=== PATIENT | female | born 1975 | race Hispanic/Latino ===

== ENCOUNTER 2018-05-29 08:17 | Inpatient (IN) | payer OTHER ==
[~2018-05-29] VITALS: Ht 177.8 cm; Wt 155.1 kg
[2018-05-29 12:03] VITALS: BP 134/76
--- NOTE | 2018-05-29 12:03 | History & Physical Pre-Op ---
General Information and [facility] MD Statement: I have seen and personally examined TONAI MERIDA and documented this H&P. The patient is a 42 year old F who presented with a patient stated chief complaint of right flank pain suprapubic pain nausea vomiting. []. History of Present Illness: 3 para 2001 at 27 and 2 with a history of insulin-dependent diabetes a previous urinary tract infection who presents with abdominal pain flank tenderness a questionable UA with bacteria for admission for pyelonephritis Allergies/Medications Allergies: Coded Allergies: Penicillins (Severe, ANAPHYLAXIS 05/29/18) acetaminophen (From LORTAB) (UNKNOWN 05/29/18) hydrocodone (From LORTAB) (UNKNOWN 05/29/18) Past History Surgical History Pertinent Surgical History: none Review of Systems Review of Systems: as stated in the HPI Exam & Diagnostic Data Physical Exam: Obese female writhing in bed HEENT anicteric pale Right CVA tenderness mild Abdomen gravid obese nontender right upper quadrant suprapubic pain noted Pelvic vulva clean cervix 1 cm long Extremities negative edema negative Homans Assessment/Plan Assessment/Plan: Assessment is IUP at 23 weeks pyelonephritis history of insulin-dependent diabetes plan is for clindamycin to Dilaudid IV fluids endocrine consult As Ranked By This Provider Problem List: 1. Pyelitis or pyelonephritis in diseases classified elsewhere 2.
[2018-05-29] MEDS ORDERED: PRENATABS RX T1 EACH PO (12:32)
[2018-05-29] MEDS ORDERED: LEXAPRO20 M1 PO (12:33)
[2018-05-29] MEDS ORDERED: NOVOLIN R100 UNIT/1 SC (12:33)
[2018-05-29 12:38] LABS: ABSOLUTE BASOPHIL COUNT 0 /CUMM (0.0-0.2); ABSOLUTE EOSINOPHIL COUNT 0.1 /CUMM (0.0-0.7); ABSOLUTE GRANULOCYTE CT 7.6 /CUMM (1.4-6.5); ABSOLUTE LYMPH COUNT 1.5 /CUMM (1.2-3.4); ABSOLUTE MONOCYTE COUNT 0.6 /CUMM (0.10-0.60); BASOPHIL % 0.3 % (0.0-2.0); EOSINOPHIL % 0.6 % (0-5); GRANULOCYTE % 78.1 % (42.2-75.2); HEMATOCRIT 26.4 % (37-47); MEAN CORPUSCULAR HGB 20.3 PG (27.0-31.0); MEAN CORPUSCULAR HGB CONC 31.4 G/DL (33.0-37.0); MEAN PLATELET VOLUME 8.1 FL (7.4-10.4); PLATELET COUNT 268 /CUMM (130-400); RBC DISTRIBUTION WIDTH 19.1 % (11.5-14.5); RED BLOOD CELL CT 4.08 /CUMM (4.20-5.40); WHITE BLOOD CELL COUNT 9.7 /CUMM (4.8-10.8)
[2018-05-29 12:55] LABS: MEAN CORPUSCULAR VOLUME 64.6 FL (81.0-99.0)
--- NOTE | 2018-05-29 16:11 | Cons- Endocrinology ---
General Information and HPI Consulting Request Date of Consult: 05/29/18 Requested By: Dr. 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 Currently she is 23 weeks . On 05/20/2018, she was put on NPH at bedtime and she was recommended to control her diet. Her glucose levels were better controlled. Repeat HbA1c on 05/29 was 5.9%. Patient was admitted for UTI and ? left pyonephrolitis. In hospital, her random glucose level was 83. Allergies/Medications Allergies: Coded Allergies: Penicillins (Severe, ANAPHYLAXIS 05/29/18) acetaminophen (From LORTAB) (UNKNOWN 05/29/18) hydrocodone (From LORTAB) (UNKNOWN 05/29/18) Home Med List: Escitalopram Oxalate (Lexapro) 20 MG TABLET 1 TAB PO DAILY DEPRESSION ( Reported) Insulin Regular (Novolin R Inj) 1,000 UNITS/10 ML LIBAN 20 UNITS SC SEE ADMIN CRITERIA DIABETES (Reported) Vit #76/Iron,Carb/FA (Prenatabs Rx Tablet) 29 MG IRON-1 MG TABLET 1 TAB PO DAILY (Reported) Review of Systems Review of Systems Constitutional: Reports: see HPI. Denies: fever. Cardiovascular: Denies: chest pain. Respiratory: Denies: short of breath. GI: Denies: abdominal pain. Genitourinary: Reports: dysuria, pain (left flank pain). Skin: Reports: no symptoms. Hematologic/Endocrine: Denies: polyuria, polydipsia. Past History Medical History Blood Disorders: iron deficiency anemia Surgical History Surgical History: 1 Psychosocial History Smoking Status: Former Smoker Exam & Diagnostic Data Last 24 Hrs of Vital Signs/I&O Vital Signs Date Time Temp Pulse Resp B/P B/P Pulse O2 O2 Flow FiO2 Mean Ox Delivery Rate 05/29 1203 134/76 Intake & Output 05/29 1600 05/29 0800 05/29 0000 Intake Total Output Total Balance Patient 342 lb Weight Physical Exam General Appearance: mild distress Neck: thyromegaly (mild) Respiratory: lungs clear Cardiovascular: regular rate/rhythm Gastrointestinal: soft, non-tender Extremities: no edema Labs/[place]isco Results: Laboratory Tests 05/29 05/29 1211 0830 Chemistry Sodium (137 - 145 mmol/L) 139 Potassium (3.5 - 5.1 mmol/L) 4.1 BUN (7 - 17 mg/dL) 5 L Creatinine (0.5 - 1.0 mg/dL) 0.5 Estimated GFR (>60 ml/min) > 60 BUN/Creatinine Ratio (7 - 25 %) 10.0 Glucose (65 - 99 mg/dL) 89 Hemoglobin A1c (4.2 - 5.8 %) 5.9 H Hematology CBC w Diff NO MAN DIFF REQ WBC (4.8 - 10.8 /CUMM) 9.7 RBC (4.20 - 5.40 /CUMM) 4.08 L Hgb (12.0 - 16.0 G/DL) 8.3 L Hct (37 - 47 %) 26.4 L MCV (81.0 - 99.0 FL) 64.6 L MCH (27.0 - 31.0 PG) 20.3 L MCHC (33.0 - 37.0 G/DL) 31.4 L RDW (11.5 - 14.5 %) 19.1 H Plt Count (130 - 400 /CUMM) 268 MPV (7.4 - 10.4 FL) 8.1 Gran % (42.2 - 75.2 %) 78.1 H Lymphocytes % (20.5 - 51.1 %) 15.1 L Monocytes % (1.7 - 9.3 %) 5.9 Eosinophils % (0 - 5 %) 0.6 Basophils % (0.0 - 2.0 %) 0.3 Absolute Granulocytes (1.4 - 6.5 /CUMM) 7.6 H Absolute Lymphocytes (1.2 - 3.4 /CUMM) 1.5 Absolute Monocytes (0.10 - 0.60 /CUMM) 0.6 Absolute Eosinophils (0.0 - 0.7 /CUMM) 0.1 Absolute Basophils (0.0 - 0.2 /CUMM) 0 Urines Urine Color (YEL,AMB,STR) YEL Urine Clarity (CLEAR) HAZY H Urine pH (5.0 - 8.0) 6.0 Ur Specific Lyme (1.001 - 1.035) 1.025 Urine Protein (NEG,<30 MG/DL) TRACE H Urine Ketones (NEG) NEG Urine Nitrite (NEG) POS H Urine Bilirubin (NEG) NEG Urine Urobilinogen (0.1 - 1.0 EU/dl) 0.2 Ur Leukocyte Esterase (NEG) LARGE H Ur Microscopic SEDIMENT EXAMINED Urine RBC (0 - 5 /HPF) RARE Urine WBC (0 - 2 /HPF) 50-75 H Ur Epithelial Cells (NONE,FEW) MOD H Urine Crystals 3+ CA OX H Urine Bacteria (NEG/NONE) MANY H Urine Mucus (FEW,NONE) RARE Urine Hemoglobin (NEG) TRACE-INTACT Urine Glucose (N MG/DL) NEG Assessment/Plan Assessment/Plan Patient is 42 years old who was found to have elevated glucose levels with HbA1c of 6.6% on 05/19/2018. Currently she is 23 weeks . On 05/20/2018, she was put on NPH at bedtime and she was recommended to control her diet. Her glucose levels were better controlled. Repeat HbA1c on 05/29 was 5.9%. Patient was admitted for UTI and ? left pyonephrolitis. Prior to admission, she was on NPH 20 units daily at bedtime. Plan: 1. agree with consistent carbohydrates 1 diet; 2. change IVF from D5 1/2 NS to 1/2 NS 150 ml/hour; I have touched base with Dr. Benavidez; 3. continue NPH 20 units daily at bedtime; 4. monitor FSGs before meals, one hour after meals and at bedtime. 5. the target glucose level before meals is less than 95; the target glucose level one hour after meals is less than 140. will follow. Consult Acknowledgment - Thank you for your consult request.
--- NOTE | 2018-05-29 18:06 | ULTRASOUND REPORT ---
EXAMINATION: US RETROPERITONEAL COMPLETE (RENAL) CLINICAL INFORMATION: Right CVA tenderness. UTI.. COMPARISON: None TECHNIQUE: Real-time imaging of the kidneys and bladder. A few grayscale and M-mode images of the fetus were obtained. FINDINGS: RIGHT KIDNEY: 13.5 x 5.5 x 5.5 cm (SAG x AP x TRV). The kidney is normal in size, contour, and echogenicity. Renal cortical thickness is normal. No calculi or focal parenchymal lesions. No hydronephrosis. LEFT KIDNEY: 12.5 x 6.8 x 6.7 cm (SAG x AP x TRV). The kidney is normal in size, contour, and echogenicity. Renal cortical thickness is normal. A 8 mm echogenic calculus is present within the left lower pole. No parenchymal lesions are identified. Mild left hydronephrosis. BLADDER: Empty. The bladder volume is 5.1 mL. Additional findings: heart rate is 1 34 bpm. Position is cephalic. IMPRESSION: Mild left hydronephrosis. A 0.8 cm nonobstructing calculus is present in the lower pole. Normal sonographic appearance of the right kidney. No right-sided renal calculi or hydronephrosis. Empty bladder.
--- NOTE | 2018-05-30 09:20 | PN- Diabetes ---
Assessment/Plan Diabetes Assessment: Patient is 42 years old who was found to have elevated glucose levels with HbA1c of 6.6% on 05/19/2018. Currently she is 23 weeks . On 05/20/2018, she was put on NPH at bedtime and she was recommended to control her diet. Her glucose levels were better controlled. Repeat HbA1c on 05/29 was 5.9%. Patient was admitted for UTI and ? left pyonephrolitis. US showed 8 mm stone and left mild hydronephrosis. Prior to admission, she was on NPH 20 units daily at bedtime. She is on consistent carbohydrates 1 diet. In addition, she is on NPH 20 units daily at bedtime. Her FSGs were 190, 125 and 90. Plan: 1. add NPH 10 units daily in the morning; 2. continue NPH 20 units daily at bedtime; 3. continue diet control; 4. continue monitoring FSGs before meals, one hour after meals and bedtime; will follow. Subjective Subjective: She feels better. Objective Last 24 Hrs of Vital Signs/I&O Vital Signs Date Time Temp Pulse Resp B/P B/P Pulse O2 O2 Flow FiO2 Mean Ox Delivery Rate 05/29 1203 134/76 Findings Pertinent Lab/[place] Results: Laboratory Tests 05/29 1211 Chemistry Sodium (137 - 145 mmol/L) 139 Potassium (3.5 - 5.1 mmol/L) 4.1 BUN (7 - 17 mg/dL) 5 L Creatinine (0.5 - 1.0 mg/dL) 0.5 Estimated GFR (>60 ml/min) > 60 BUN/Creatinine Ratio (7 - 25 %) 10.0 Glucose (65 - 99 mg/dL) 89 Hemoglobin A1c (4.2 - 5.8 %) 5.9 H Hematology CBC w Diff NO MAN DIFF REQ WBC (4.8 - 10.8 /CUMM) 9.7 RBC (4.20 - 5.40 /CUMM) 4.08 L Hgb (12.0 - 16.0 G/DL) 8.3 L Hct (37 - 47 %) 26.4 L MCV (81.0 - 99.0 FL) 64.6 L MCH (27.0 - 31.0 PG) 20.3 L MCHC (33.0 - 37.0 G/DL) 31.4 L RDW (11.5 - 14.5 %) 19.1 H Plt Count (130 - 400 /CUMM) 268 MPV (7.4 - 10.4 FL) 8.1 Gran % (42.2 - 75.2 %) 78.1 H Lymphocytes % (20.5 - 51.1 %) 15.1 L Monocytes % (1.7 - 9.3 %) 5.9 Eosinophils % (0 - 5 %) 0.6 Basophils % (0.0 - 2.0 %) 0.3 Absolute Granulocytes (1.4 - 6.5 /CUMM) 7.6 H Absolute Lymphocytes (1.2 - 3.4 /CUMM) 1.5 Absolute Monocytes (0.10 - 0.60 /CUMM) 0.6 Absolute Eosinophils (0.0 - 0.7 /CUMM) 0.1 Absolute Basophils (0.0 - 0.2 /CUMM) 0
--- NOTE | 2018-05-30 09:52 | PN- Post Delivery/GYN ---
Subjective Subjective: Decreased pain Objective Last 24 Hrs of Vital Signs/I&O Vital Signs Date Time Temp Pulse Resp B/P B/P Pulse O2 O2 Flow FiO2 Mean Ox Delivery Rate 05/29 1203 134/76 Physical Exam: Obese female heart rates 130s-140s HEENT anicteric pale Lungs clear Abdomen gravid soft nontender negative guarding Suprapubic tenderness decreased Extremities negative edema Assessment/Plan Assessment/Plan Assessment is IUP at 26 weeks insulin-dependent diabetic morbid obesity severely anemic pyelonephritis Plan supplement with iron dietary consult continue antibiotics continue insulin increase ambulation
--- NOTE | 2018-05-30 18:08 | PN- OBGYN ---
Surgical Brief Attending Note Brief Attending Note: Gram negative rods noted in urine. Clindamycin will be changed to Ceftriaxone. 10% cross reactivity with PCN class. Discussed change with patient and Dr Benavidez was in agreement I will be at patient's bedside to administer benadryl if any reaction noted. Dr Mccallum saw patient and will follow for issue of stone.
--- NOTE | 2018-05-31 07:36 | Cons- Urology ---
General Information and HPI Consulting Request Date of Consult: 05/31/18 Requested By: Pramod COELHO,Ayesha Zambrano Reason for Consult: left stone pyelonephrosis Source of Information: patient, old records Exam Limitations: no limitations History of Present Illness: 42 year old: 3, para 2, at 26 weeks: and 2 with a history of insulin- dependent diabetes a previous urinary tract infection who presents with abdominal pain flank tenderness, dysuria, and a questionable UA with bacteria for admission for pyelonephritis. Renal us reviewed. Pt much more comfortable and ambulatory today: no fever, chill, n/v. Allergies/Medications Allergies: Coded Allergies: Penicillins (Severe, ANAPHYLAXIS 05/29/18) hydrocodone (From LORTAB) (UNKNOWN 05/29/18) Home Med List: Escitalopram Oxalate (Lexapro) 20 MG TABLET 1 TAB PO DAILY DEPRESSION ( Reported) Insulin Regular (Novolin R Inj) 1,000 UNITS/10 ML LIABN 20 UNITS SC SEE ADMIN CRITERIA DIABETES (Reported) Vit #76/Iron,Carb/FA (Prenatabs Rx Tablet) 29 MG IRON-1 MG TABLET 1 TAB PO DAILY (Reported) Current Medications: Current Medications Sig/Jimmie Start time Last Medication Dose Route Stop Time Status Admin Acetaminophen 1,000 MG .STK-MED ONE 05/30 1811 DC IV 05/30 1812 Acetaminophen 1,000 MG .STK-MED ONE 05/30 1218 DC IV 05/30 1219 Acetaminophen 1,000 MG Q6P PRN 05/29 1315 AC 05/31 N/A 1 UNIT IV 0018 Albuterol Sulfate 2 PUF Q4P PRN 05/31 2345 AC INH Albuterol Sulfate 3 ML ONCE ONE 05/31 0030 DC 05/31 INH 05/31 0031 0042 Bisacodyl 5 MG DAILY PRN 05/30 2045 AC PO Ceftriaxone Sodium 1,000 MG 1800 05/30 1800 AC 05/30 IV 1950 Clindamycin 900 MG .STK-MED ONE 05/30 1545 DC IM 05/30 1546 Clindamycin 900 MG .STK-MED ONE 05/30 0751 DC IM 05/30 0752 Clindamycin 900 MG IQ8 05/29 1600 DC 05/30 Dextrose/Water 50 ML IV 1604 Diphenhydramine HCl 25 MG ONCE ONE 05/30 1750 DC 05/30 IV PUSH 05/30 1751 1955 Docusate Sodium 100 MG .STK-MED ONE 05/30 0805 DC PO 05/30 08 Docusate Sodium 100 MG DAILY NEEDED PRN 05/29 1445 AC 05/30 PO 0808 Escitalopram Oxalate 20 MG AT BEDTIME 05/29 2100 AC 05/30 PO 2102 Ferrous Sulfate 325 MG BID 05/29 1431 AC 05/30 PO 2102 Hydromorphone HCl 2 MG Q3P PRN 05/29 1145 AC 05/31 PO 0040 Insulin Human NPH 10 UNITS 8AM 05/31 0800 DC SC Insulin Human NPH 10 UNITS 8AM 05/30 0915 AC 05/30 SC 0908 Insulin Human NPH 20 UNITS AT BEDTIME 05/29 2100 AC 05/30 SC 2158 Omeprazole 40 MG DAILY AC 05/29 1237 AC 05/30 PO 0807 Ondansetron HCl 4 MG Q6P PRN 05/29 1245 AC 05/29 IV 1259 Phenazopyridine HCl 200 MG BID 05/29 2100 AC 05/30 PO 210 Sodium Chloride 1,000 ML Q6H 05/29 1415 AC 05/30 IV 1217 Past History Medical History Blood Disorders: iron deficiency anemia Surgical History Pertinent Surgical History: 1 Psychosocial History Smoking Status: Former Smoker Employment History Retired? unknown Review of Systems Review of Systems Constitutional: Reports: malaise, weakness. EENTM: Denies: no symptoms. Cardiovascular: Denies: no symptoms. Respiratory: Denies: no symptoms. GI: Reports: abdominal pain, bloating. Genitourinary: Reports: dysuria. Musculoskeletal: Denies: no symptoms. Skin: Denies: no symptoms. Exam & Diagnostic Data Vital Signs and I&O Vital Signs Date Time Temp Pulse Resp B/P B/P Pulse O2 O2 Flow FiO2 Mean Ox Delivery Rate 05/31 0043 98 Room Air Intake & Output 05/31 0000 05/30 1600 05/30 0805/30 0000 05/29 1600 Intake Total Output Total Balance Patient 342 lb Weight Physical Exam General Appearance: well developed/nourished, no apparent distress Head: atraumatic Eyes: Bilateral: normal appearance. Respiratory: normal breath sounds Cardiovascular: regular rate/rhythm Gastrointestinal: normal bowel sounds, soft, non-tender Back: no vertebral tenderness Extremities: normal inspection Skin: intact, normal color, warm/dry Imaging Results: PATIENT: TONIA MERIDA PRESENT AGE: 42 PATIENT ACCOUNT NO: [id number] : 76 LOCATION: [facility] ORDERING PHYSICIAN: Ayesha Benavidez MD SERVICE DATE: 05/29/18- EXAM TYPE: US - US-RENAL/KIDNEY EXAMINATION: US RETROPERITONEAL COMPLETE (RENAL) CLINICAL INFORMATION: Right CVA tenderness. UTI.. COMPARISON: None TECHNIQUE: Real-time imaging of the kidneys and bladder. A few grayscale and M-mode images of the fetus were obtained. FINDINGS: RIGHT KIDNEY: 13.5 x 5.5 x 5.5 cm (SAG x AP x TRV). The kidney is normal in size, contour, and echogenicity. Renal cortical thickness is normal. No calculi or focal parenchymal lesions. No hydronephrosis. LEFT KIDNEY: 12.5 x 6.8 x 6.7 cm (SAG x AP x TRV). The kidney is normal in size, contour, and echogenicity. Renal cortical thickness is normal. A 8 mm echogenic calculus is present within the left lower pole. No parenchymal lesions are identified. Mild left hydronephrosis. BLADDER: Empty. The bladder volume is 5.1 mL. Additional findings: heart rate is 1 34 bpm. Position is cephalic. IMPRESSION: Mild left hydronephrosis. A 0.8 cm nonobstructing calculus is present in the lower pole. Normal sonographic appearance of the right kidney. No right-sided renal calculi or hydronephrosis. Empty bladder. DICTATED BY: Twan Birmingham MD DATE/TIME DICTATED:05/29/181799 PROTOHISTORIAN:KACY DATE/TIME TRANSCRIBED:05/29/181799 CONFIDENTIAL, DO NOT COPY WITHOUT APPROPRIATE AUTHORIZATION. <Electronically signed in Other Vendor System> SIGNED BY: Twan Birmingham MD 05/29/18 1850 Assessment/Plan Assessment/Plan pyleonephrisits with unobstructing stone: continue IV, IVabx-and monitor: will need abx for prolonged period due to susptected pyelonephritis: NO stent/ESWL at this time as pt is improving overall-awaiting delivery of 3rd child and will then proceed with ESWL as discussed with pt. Copies To: James Mccallum MD Consult Acknowledgment - Thank you for your consult request. Attending MD Review Statement Attending Statement Attending MD Statement: examined this patient, discuss w/resident/PA/[employer] Attending Assessment/Plan: continue abx; will observe closely if worsens and may then require stent.
--- NOTE | 2018-05-31 10:48 | PN- Diabetes ---
Assessment/Plan Diabetes Assessment: Patient is 42 years old who was found to have elevated glucose levels with HbA1c of 6.6% on 05/19/2018. Currently she is 23 weeks . On 05/20/2018, she was put on NPH at bedtime and she was recommended to control her diet. Her glucose levels were better controlled. Repeat HbA1c on 05/29 was 5.9%. Patient was admitted for UTI and ? left pyonephrolitis. US showed 8 mm stone and left mild hydronephrosis. Prior to admission, she was on NPH 20 units daily at bedtime. She is on consistent carbohydrates 1 diet. In addition, she is on NPH 10 units am and 20 units daily at bedtime. Her FSGs were 90, 113, 78, 131, 94, 133, 93 and 94. Plan: 1. continue NPH 10 units daily in the morning; 2. continue NPH 20 units daily at bedtime; 3. continue diet control; 4. continue monitoring FSGs before meals, one hour after meals and bedtime; will follow. Subjective Subjective: She feels better. Objective Last 24 Hrs of Vital Signs/I&O Vital Signs Date Time Temp Pulse Resp B/P B/P Pulse O2 O2 Flow FiO2 Mean Ox Delivery Rate 05/31 0043 98 Room Air
--- NOTE | 2018-05-31 12:15 | PN- Post Delivery/GYN ---
Subjective Subjective: C/O LEFT PAIN CVA Objective Last 24 Hrs of Vital Signs/I&O Vital Signs Date Time Temp Pulse Resp B/P B/P Pulse O2 O2 Flow FiO2 Mean Ox Delivery Rate 05/31 1130 Room Air 05/31 0043 98 Room Air Physical Exam: PE OBESE WF IN NAD ABD SOFT NT BACK L CVA EXT - EDEMA-HOMANS Assessment/Plan Assessment/Plan ASSESS PYLONEPHRITIS PLAN CEFTRIAXONE
--- NOTE | 2018-06-01 08:27 | PN- Diabetes ---
Assessment/Plan Diabetes Assessment: Patient is 42 years old who was found to have elevated glucose levels with HbA1c of 6.6% on 05/19/2018. Currently she is 23 weeks . On 05/20/2018, she was put on NPH at bedtime and she was recommended to control her diet. Her glucose levels were better controlled. Repeat HbA1c on 05/29 was 5.9%. Patient was admitted for UTI and ? left pyonephrolitis. US showed 8 mm stone and left mild hydronephrosis. Prior to admission, she was on NPH 20 units daily at bedtime. She is on consistent carbohydrates 1 diet. In addition, she is on NPH 10 units am and 20 units daily at bedtime. Her FSGs were 86, 89, 80, 93, 72 and 67. Plan: 1. stop NPH 10 units daily in the morning; 2. continue NPH 20 units daily at bedtime; 3. continue diet control; 4. continue monitoring FSGs before meals, one hour after meals and bedtime; will follow. Plan: see above. Subjective Subjective: Her glucose level has been slightly low. Objective Last 24 Hrs of Vital Signs/I&O Vital Signs Date Time Temp Pulse Resp B/P B/P Pulse O2 O2 Flow FiO2 Mean Ox Delivery Rate 05/31 1130 Room Air
--- NOTE | 2018-06-01 08:56 | PN- Post Delivery/GYN ---
Subjective Subjective: C/O RASH AND BLISTERS OLIVER BLADDER PAIN Objective Last 24 Hrs of Vital Signs/I&O Vital Signs Date Time Temp Pulse Resp B/P B/P Pulse O2 O2 Flow FiO2 Mean Ox Delivery Rate 05/31 1130 Room Air Physical Exam: PE OBESE HF INPAIN BACK L CVA TENDERNESS ABD SOFT NT FHR 132 EXT -EDEMA Assessment/Plan Assessment/Plan ASSESS IUP AT26 WEEKS IDDM PYELONEPHRITIS SEVERE ANEMIA ALLERGIC TO PCN PLAN UA C/S IRON CBC CONSULT WITH ID CLINDA
[2018-06-01 10:12] LABS: ABSOLUTE BASOPHIL COUNT 0 /CUMM (0.0-0.2); ABSOLUTE EOSINOPHIL COUNT 0.1 /CUMM (0.0-0.7); ABSOLUTE GRANULOCYTE CT 8.6 /CUMM (1.4-6.5); ABSOLUTE LYMPH COUNT 0.6 /CUMM (1.2-3.4); ABSOLUTE MONOCYTE COUNT 0.5 /CUMM (0.10-0.60); BASOPHIL % 0.4 % (0.0-2.0); EOSINOPHIL % 0.8 % (0-5); GRANULOCYTE % 87.9 % (42.2-75.2); HEMATOCRIT 24.2 % (37-47); MEAN CORPUSCULAR HGB 20.5 PG (27.0-31.0); MEAN CORPUSCULAR HGB CONC 31.5 G/DL (33.0-37.0); MEAN CORPUSCULAR VOLUME 65.2 FL (81.0-99.0); MEAN PLATELET VOLUME 8.3 FL (7.4-10.4); PLATELET COUNT 250 /CUMM (130-400); RED BLOOD CELL CT 3.72 /CUMM (4.20-5.40); WHITE BLOOD CELL COUNT 9.8 /CUMM (4.8-10.8)
--- NOTE | 2018-06-01 14:46 | Cons- Infect Disease ---
General Information and HPI Consulting Request Date of Consult: 06/01/18 Requested By: Pramod COELHO,Ayesha Zambrano Reason for Consult: Pyelonephritis Source of Information: patient History of Present Illness: This is a 42-year-old woman, 3, currently 26 weeks , with recently diagnosed gestational diabetes, for which she was begun on insulin, admitted on May 29 with several days of urinary hesitancy, suprapubic discomfort and left flank pain. On admission she was afebrile. Laboratory data revealed a white blood cell count of 10,000, BUN/creatinine 5 and 0.5, hemoglobin A1c 5.9. Urinalysis rare RBC/50-75 WBCs. Renal ultrasound revealed a mild left hydronephrosis with a 0.8 cm nonobstructing calculus in the lower pole of the left kidney. She was begun on Clindamycin. On May 30 she was changed to Ceftriaxone after her urine culture was found to be positive for gram-negative rods. She developed pruritus in the left upper extremity after the first dose and a more generalized pruritus after the dose yesterday, with a localized rash reported in the left upper extremity. The Ceftriaxone was then discontinued and she was restarted on Clindamycin. She has been afebrile since admission. She notes improvement in her left back pain but continues to report suprapubic discomfort. She has no dysuria or frequency. Allergies/Medications Allergies: Coded Allergies: Penicillins (Severe, ANAPHYLAXIS 05/29/18) ceftriaxone (From ROCEPHIN) (Mild, ITCHING 05/31/18) hydrocodone (From LORTAB) (UNKNOWN 05/29/18) Home Med List: Escitalopram Oxalate (Lexapro) 20 MG TABLET 1 TAB PO DAILY DEPRESSION ( Reported) Insulin Regular (Novolin R Inj) 1,000 UNITS/10 ML LIBAN 20 UNITS SC SEE ADMIN CRITERIA DIABETES (Reported) Vit #76/Iron,Carb/FA (Prenatabs Rx Tablet) 29 MG IRON-1 MG TABLET 1 TAB PO DAILY (Reported) Past History Medical History Blood Disorders: iron deficiency anemia Surgical History Surgical History: none Psychosocial History Smoking Status: Former Smoker Review of Systems Review of Systems Constitutional: Denies: chills, fever. All Other Systems: Reviewed and Negative Exam & Diagnostic Data Last 24 Hrs of Vital Signs/I&O Her vital signs are stable Physical Exam Other Physical Findings: She is awake and alert in no acute distress. She is afebrile. Skin reveals no rash. HEENT exam is negative. Neck is supple with no adenopathy. Lungs are clear. Heart regular rhythm with no murmur. Abdomen is obese, soft, mild suprapubic tenderness, with positive bowel sounds. Back left CVA tenderness. Extremities no cyanosis, clubbing or edema. Neuro is without focality. Last 24 Hours of Lab Results: Laboratory Tests 06/01 09 Hematology CBC w Diff MAN DIFF ORDERED WBC (4.8 - 10.8 /CUMM) 9.8 RBC (4.20 - 5.40 /CUMM) 3.72 L Hgb (12.0 - 16.0 G/DL) 7.6 L Hct (37 - 47 %) 24.2 L MCV (81.0 - 99.0 FL) 65.2 L MCH (27.0 - 31.0 PG) 20.5 L MCHC (33.0 - 37.0 G/DL) 31.5 L RDW (11.5 - 14.5 %) 20.0 H Plt Count (130 - 400 /CUMM) 250 MPV (7.4 - 10.4 FL) 8.3 Gran % (42.2 - 75.2 %) 87.9 H Lymphocytes % (20.5 - 51.1 %) 6.2 L Monocytes % (1.7 - 9.3 %) 4.7 Eosinophils % (0 - 5 %) 0.8 Basophils % (0.0 - 2.0 %) 0.4 Absolute Granulocytes (1.4 - 6.5 /CUMM) 8.6 H Segmented Neutrophils (42.2 - 75.2 %) 82 H Band Neutrophils (0.0 - 5.0 %) 6 H Absolute Lymphocytes (1.2 - 3.4 /CUMM) 0.6 L Lymphocytes (20.5 - 51.1 %) 6 L Monocytes (1.7 - 9.3 %) 6 Absolute Monocytes (0.10 - 0.60 /CUMM) 0.5 Absolute Eosinophils (0.0 - 0.7 /CUMM) 0.1 Absolute Basophils (0.0 - 0.2 /CUMM) 0 Platelet Estimate (ADEQUATE) VERIFIED BY SMEAR Polychromasia 1+ Hypochromic-Microcytic 1+ Anisocytosis 1+ Microcytic Cells 1+ Last 24 Hours of [place] Results: Urine culture May 29 greater than 100,000 colonies of Klebsiella resistant to Ampicillin and intermediate to Nitrofurantoin and approximately 10,000 colonies of E. coli sensitive to all antibiotics tested Urine culture June 01 pending Diagnostic Data Recent Imaging Findings: Renal ultrasound May 29 reveals a mild left hydronephrosis with a 0.8 cm nonobstructing calculus in the lower pole of the left kidney Assessment/Plan Assessment/Plan Impression: This is a 42-year-old woman, currently 26 weeks , admitted on May 29 with several days of urinary hesitancy, suprapubic discomfort and left flank pain, found to be afebrile with a normal white blood cell count, with her urine culture positive for Klebsiella and E. coli and with a renal ultrasound revealing a mild left hydronephrosis and a nonobstructing stone in the left kidney. Her clinical picture is suggestive of left-sided pyelonephritis and she appears to be responding to Ceftriaxone. She has, however, developed pruritus on the Ceftriaxone and, given her remote Penicillin allergy, suspect that this may be secondary to the Ceftriaxone, to which she may also be allergic. Options include premedication with Benadryl or steroids or, perhaps preferably, switching to an alternative agent. Options, however, are limited given her allergies and status, which precludes the use of certain antibiotics. She does have a mild left hydronephrosis, but this is felt to be nonobstructing, and she has been evaluated by Urology, with no plans for intervention at this time. She will require a 2 week course of antibiotics for pyelonephritis, after which she may need to be on antibiotic suppression for the remainder of her . Suggestion: 1. Further management of her left hydronephrosis and nephrolithiasis per Urology 2. Discontinue Clindamycin 3. Begin Bactrim DS 1 p.o. every 12 hours (if okay with [employer]ATOR) for 12 more days to complete a two-week course 4. Will need to consider a suppressive antibiotic through the rest of her after she completes her course of Bactrim Consult Acknowledgment - Thank you for your consult request.
[2018-06-02] MEDS ORDERED: HYDROMORPHONE HC2 M1 PO (09:06)
[2018-06-02] MEDS ORDERED: FERROUS SULFAT325 M2 PO (09:06)
[2018-06-02] MEDS ORDERED: SULFAMETHOXAZO1 EAC1 PO (09:10)
--- NOTE | 2018-06-02 09:20 | PN- Diabetes ---
Assessment/Plan Diabetes Assessment: Patient is 42 years old who was found to have elevated glucose levels with HbA1c of 6.6% on 05/19/2018. Currently she is 23 weeks . On 05/20/2018, she was put on NPH at bedtime and she was recommended to control her diet. Her glucose levels were better controlled. Repeat HbA1c on 05/29 was 5.9%. Patient was admitted for UTI and ? left pyonephrolitis. US showed 8 mm stone and left mild hydronephrosis. Prior to admission, she was on NPH 20 units daily at bedtime. She is on consistent carbohydrates 1 diet. In addition, she is on NPH 20 units daily at bedtime. Her FSGs were 108, 93, 119, 103, 106, 93 and 73. Plan: 1 continue NPH 20 units daily at bedtime; 2. .continue diet control; 3. continue monitoring FSGs before meals, one hour after meals and bedtime; will follow. Subjective Subjective: She feels better this morning. Objective Last 24 Hrs of Vital Signs/I&O vital signs stable.
--- NOTE | 2018-06-02 11:37 | PN- Infect Dx ---
Subjective Subjective: Afebrile. She feels well with no further suprapubic discomfort or left flank pain. Objective Last 24 Hrs of Vital Signs/I&O Vital signs are stable Physical Exam Other Physical Findings: She appears comfortable in no acute distress Back no further left CVA tenderness Results Last 24 Hours of Lab Results: No labs from today Last 24 Hours of [place] Results: Urine culture June 01 negative Assessment/Plan ID Impression: Improved, with temperatures and white blood cell count remaining normal and with resolution of her left flank and suprapubic discomfort, on Bactrim, Day 3 of treatment for pyelonephritis secondary to E. coli and Klebsiella. She was apparently also begun on Macrodantin, but this should not be necessary until after she has completed her course of Bactrim, at which point it can be given for prophylaxis until her delivery. Suggestion: 1. Discontinue Macrodantin until after she has completed her course of Bactrim 2. Continue Bactrim for 11 more days
== END 2018-06-02 10:15 | DRG 781 ==
LOC: CBCO 08:17 → GNO 11:32
PROVIDERS: Specialist
DX: O23.02 Infections of kidney in pregnancy, second trimester (principal); Z3A.23 23 weeks gestation of pregnancy; O24.414 Gestational diabetes mellitus in pregnancy, insulin controlled; Z88.6 Allergy status to analgesic agent; Z88.1 Allergy status to other antibiotic agents; Z88.5 Allergy status to narcotic agent; B96.20 Unspecified Escherichia coli [E. coli] as the cause of diseases classified elsewhere; B96.1 Klebsiella pneumoniae [K. pneumoniae] as the cause of diseases classified elsewhere
CPT/HCPCS: GNOS; 36415; 76775; 81001; 87086; 96360; 96361; 96365; G0463; J0131; J0696; J1200; J1815; J2405; J3490; J7042